=== PATIENT | female | born 2000 | race Caucasian/White ===

== ENCOUNTER 2024-11-07 16:27 | Emergency (ER) | payer BC ==
[2024-11-07] MEDS: Cyclobenzaprine 10 MG Tab PO ONE (16:50)
== END 2024-11-07 16:56 | disposition home or self-care (01) ==
LOC: FB.ED 16:27
DX: S46.812A Strain of other muscles, fascia and tendons at shoulder and upper arm level, left arm, initial encounter (principal); Z87.891 Personal history of nicotine dependence; X50.9XXA Other and unspecified overexertion or strenuous movements or postures, initial encounter
CPT/HCPCS: 99283; A9270